=== PATIENT | male | born 1975 | race Caucasian/White ===

== ENCOUNTER 2021-01-20 04:55 | Emergency (ER) | payer OTHER ==
[2021-01-20] MEDS ORDERED: predniSONE 20 MG TABLET ONE (05:45)
== END 2021-01-20 05:51 | disposition home or self-care (01) ==
LOC: ER 04:55
DX: T78.40XA Allergy, unspecified, initial encounter (principal); X58.XXXA Exposure to other specified factors, initial encounter
CPT/HCPCS: 99283

== ENCOUNTER 2021-01-21 16:34 | Emergency (ER) | payer OTHER ==
[~2021-01-21] VITALS: Ht 175.3 cm; Wt 85.3 kg
[2021-01-21 16:55] VITALS: BP 158/101
--- NOTE | 2021-01-21 17:07 | PHYS DOC ---
General Adult EDM: Chief Complaint: SKIN PROBLEM HPI: HPI: Patient is a 45 year old male who presents with 2-day history of hives. Started the day after he tried a new healthy meal with some ingredients that he had never had before. He was seen here in the emergency department and started on Benadryl which only seem to help slightly. The hives are fluctuating in different locations on his body depending on this positioning. They are itchy. Not painful. They are not staying in the same place. He has had no wheezing, shortness of breath, swollen throat or mouth. No GI upset. No new hygiene products or topical exposures that he is aware of. No lesions in his mouth or around his eyes. Review of Systems: Review of Systems: Constitutional: Denies fever or chills Eyes: Denies change in visual acuity HENT: Denies nasal congestion or sore throat Respiratory: Denies cough or shortness of breath Cardiovascular: Denies chest pain or edema GI: Denies abdominal pain, nausea, vomiting, bloody stools or diarrhea : Denies dysuria Musculoskeletal: Denies back pain or joint pain Integument: Reports hives Neurologic: Denies headache, focal weakness or sensory changes Endocrine: Denies polyuria or polydipsia Lymphatic: Denies swollen glands Psychiatric: Denies depression or anxiety Physical Exam: PE: Constitutional: Well developed, well nourished, no acute distress, non-toxic appearance. [] HENT: No mucosal involvement of rash [] Eyes: PERRLA, EOMI, conjunctiva normal, no discharge. [] Neck: Normal range of motion, no tenderness, supple, no stridor. [] Cardiovascular:Heart rate regular rhythm, no murmur [] Lungs & Thorax: Bilateral breath sounds clear to auscultation [] Abdomen: Bowel sounds normal, soft, no tenderness, no masses, no pulsatile masses. [] Skin: Scattered urticaria. [] Back: No tenderness, no CVA tenderness. [] Extremities: No tenderness, no cyanosis, no clubbing, ROM intact, no edema. [] Neurologic: Alert and oriented X 3, normal motor function, normal sensory function, no focal deficits noted. [] Psychologic: Affect normal, judgement normal, mood normal. [] EKG: EKG: [] Radiology/Procedures: Radiology/Procedures: [] Heart Score: C/O Chest Pain: No Risk Factors: Risk Factors: DM, Current or recent (<one month) smoker, HTN, HLP, family history of CAD, obesity. Risk Scores: Score 0 - 3: 2.5% MACE over next 6 weeks - Discharge Home Score 4 - 6: 20.3% MACE over next 6 weeks - Admit for Clinical Observation Score 7 - 10: 72.7% MACE over next 6 weeks - Early Invasive Strategies Course & Med Decision Making: Course & Med Decision Making Pertinent Labs and Imaging studies reviewed. (See chart for details) Patient 45-year-old male who presents for the second time for hives/urticaria. Likely a dietary exposure. No topical exposures identified. He has been taking Benadryl 50 mg every 6 hours, and had expected it to go away. When it had not gone away within 24 hours he became concerned and return to the emergency department. No evidence of anaphylactic reaction. No evidence of mucosal involvement or more serious rash. Exam is consistent with urticaria. I have advised him to take Benadryl 50 mg every 6 hours, cetirizine 10 mg daily, and famotidine 20 mg twice daily. Dragon Disclaimer: Dragon Disclaimer: This electronic medical record was generated, in whole or in part, using a voice recognition dictation system. Departure Departure: Impression: Primary Impression: Urticaria Disposition: HOME / SELF CARE / HOMELESS Condition: STABLE Referrals: PCPBEENA (PCP) Patient Instructions: Hives Additional Instructions: Medications you can try: Benadryl 25-50 mg every 6 hours Cetirizine 10 mg daily Famotidine 20 mg twice daily MATTY MATOS MD Jan 21, 2021 17:07
== END 2021-01-21 17:10 | disposition home or self-care (01) ==
LOC: ER 16:36
DX: L50.9 Urticaria, unspecified (principal)
CPT/HCPCS: 99282